=== PATIENT | female | born 1980 | race Caucasian/White ===

== ENCOUNTER 2022-03-14 04:38 | Emergency (ER) | payer OTHER ==
[~2022-03-14] VITALS: Ht 172.7 cm; Wt 63.6 kg
[2022-03-14 06:00] VITALS: BP 135/75
== END 2022-03-14 06:52 | disposition home or self-care (01) ==
LOC: EMS 04:42
DX: S09.93XA Unspecified injury of face, initial encounter (principal); Z88.5 Allergy status to narcotic agent; Z88.8 Allergy status to other drugs, medicaments and biological substances; Y04.0XXA Assault by unarmed brawl or fight, initial encounter; Y93.89 Activity, other specified; Y92.89 Other specified places as the place of occurrence of the external cause; Y99.8 Other external cause status
CPT/HCPCS: 99281; Z7502

== ENCOUNTER 2022-08-27 04:25 | Inpatient (IN) | payer MEDICAID ==
[~2022-08-27] VITALS: Ht 175.3 cm; Wt 72.4 kg
[2022-08-27 06:17] VITALS: BP 98/68
[2022-08-27] MEDS ORDERED: LOPERAMIDE HCL 2 MG CAPSULE PO PRN (06:45)
[2022-08-27] MEDS ORDERED: NICOTINE 14 MG/24 HOUR PATCH TD PRN (06:45)
[2022-08-27] MEDS ORDERED: MAGNESIUM HYDROXIDE SUSPENSION 30 ML UDCUP PO PRN (06:45)
[2022-08-27] MEDS ORDERED: CloNIDine HCL 0.1 MG TABLET PO PRN (06:45)
[2022-08-27] MEDS ORDERED: ALBUTEROL SULFATE HFA 90 MCG/PUFF 8 GM INHALER IH PRN (06:45)
[2022-08-27] MEDS ORDERED: IBUPROFEN 400 MG TABLET PO PRN (06:45)
[2022-08-27] MEDS ORDERED: DOCUSATE SODIUM 100 MG CAPSULE PO PRN (06:45)
[2022-08-27] MEDS ORDERED: PETROLATUM,WHITE 28 GM JELLY TP PRN (06:45)
[2022-08-27] MEDS ORDERED: GuaiFENesin/D-METHORPHAN [SUGAR-FREE] 200-20MG/10 ML SYRUP UDCUP PO PRN (06:45)
[2022-08-27 08:15] VITALS: BP 113/66
[2022-08-27] MEDS: LORazepam 2 MG TABLET PO PRN ×3 (08:54→21:13)
[2022-08-27] MEDS: HALOPERIDOL 5 MG TABLET PO PRN ×2 (08:54→14:30)
[2022-08-27] MEDS: SERTRALINE HCL 50 MG TABLET PO SCH (09:46)
[2022-08-27 20:29] VITALS: BP 113/75
[2022-08-27] MEDS: QUEtiapine FUMARATE 200 MG TABLET PO SCH (21:12)
[2022-08-27] MEDS: ZOLPIDEM TARTRATE 10 MG TABLET PO PRN (21:12)
[2022-08-28] MEDS: LORazepam 2 MG TABLET PO PRN ×3 (06:01→22:24)
[2022-08-28] MEDS: SERTRALINE HCL 50 MG TABLET PO SCH (08:15)
[2022-08-28 08:16] VITALS: BP 116/65
[2022-08-28] MEDS: QUEtiapine FUMARATE 200 MG TABLET PO SCH (20:07)
[2022-08-28 20:53] VITALS: BP 118/69
[2022-08-28] MEDS: ZOLPIDEM TARTRATE 10 MG TABLET PO PRN (21:24)
[2022-08-28] MEDS: HALOPERIDOL 5 MG TABLET PO PRN (22:24)
[2022-08-29] MEDS ORDERED: DiphenhydrAMINE HCL 50 MG/ML VIAL ONE (05:26)
[2022-08-29] MEDS ORDERED: HALOPERIDOL LACTATE 5 MG/ML VIAL ONE (05:26)
[2022-08-29] MEDS ORDERED: DiphenhydrAMINE HCL 50 MG/ML VIAL IM ONE (05:30)
[2022-08-29] MEDS ORDERED: LORazepam 2 MG/ML VIAL IM ONE (05:30)
[2022-08-29] MEDS ORDERED: HALOPERIDOL LACTATE 5 MG/ML VIAL IM ONE (05:30)
[2022-08-29 06:08] VITALS: BP 124/68
[2022-08-29 07:40] LABS: BASOPHILS % (AUTO) 1.2 % (0.0-2.0); HEMATOCRIT 31.9 % (36-46); HEMOGLOBIN 9.7 g/dL (12.0-16.0); LYMPHOCYTES # (AUTO) 1.7 K/uL (1.0-4.8); LYMPHOCYTES % (AUTO) 30.7 % (22.0-44.0); MEAN CORPUSCULAR HEMOGLOBIN 20.9 pg (26.0-34.0); MEAN CORPUSCULAR HGB CONC 30.3 G/dL (31.0-37.0); MEAN CORPUSCULAR VOLUME 69 fL (80-100); MONOCYTES # (AUTO) 0.4 K/uL (0.1-1.0); MONOCYTES % (AUTO) 6.6 % (2.0-9.0); NEUTROPHILS # (AUTO) 3.3 K/uL (1.8-7.7); NEUTROPHILS % (AUTO) 60.5 % (40.0-70.0); PLATELET COUNT (AUTO) 333 K/uL (150-450); RED BLOOD CELL COUNT(AUTO) 4.61 MIL/uL (4.00-5.20); RED CELL DISTRIBUTION WIDTH 19.8 % (11.5-14.5)
[2022-08-29 07:50] LABS: HEMOGLOBIN A1C 5.8 % (3.8-5.6)
[2022-08-29 07:57] LABS: ALANINE AMINOTRANSFERASE 58 U/L (12-78); ALBUMIN 2.8 g/dL (3.4-5.0); ALKALINE PHOSPHATASE 84 U/L (46-116); ANION GAP 5 mmol/L (8-16); ASPARTATE AMINOTRANSFERASE 34 U/L (15-37); BILIRUBIN,TOTAL 0.2 mg/dL (0.1-1.0); CALCIUM, TOTAL 8.5 mg/dL (8.8-10.5); CARBON DIOXIDE 32 mmol/L (22-29); CHLORIDE 106 mmol/L (98-107); CHOL/HDL RATIO 3.3 (3.9-5.7); CHOLESTEROL 188 mg/dL (131-200); CREATININE 0.71 mg/dL (0.60-1.30); GLOMERULAR FILTR. RATE CALC > 60 mL/min (>60); GLUCOSE,RANDOM 77 mg/dL (70-110); HDL CHOLESTEROL 57 mg/dL (40-60); LDL CHOL (CALC.) 118 mg/dL (0-130); POTASSIUM 4.5 mmol/L (3.5-5.1); SODIUM SERUM 143 mmol/L (136-145); TOTAL PROTEIN, SERUM 6.8 g/dL (6.4-8.2); TRIGLYCERIDES 64 mg/dL (15-150); UREA NITROGEN, BLOOD 23 mg/dL (7-18)
[2022-08-29 08:18] LABS: FREE T4 (FREE THYROXINE) 0.63 ng/dL (0.76-1.46)
[2022-08-29 09:40] VITALS: BP 120/79
[2022-08-29] MEDS: SERTRALINE HCL 50 MG TABLET PO SCH (09:49)
[2022-08-29] MEDS: QUEtiapine FUMARATE 200 MG TABLET PO SCH ×2 (09:58→20:14)
[2022-08-29] MEDS: HALOPERIDOL 5 MG TABLET PO PRN ×2 (13:51→22:43)
[2022-08-29] MEDS: LORazepam 2 MG TABLET PO PRN ×2 (13:51→22:43)
[2022-08-29] MEDS: MAG HYDROX/AL HYDROX/SIMETH ES 30 ML SUSPENSION UDCUP PO PRN (15:28)
[2022-08-29 20:16] VITALS: BP 111/71
[2022-08-30] MEDS: ZOLPIDEM TARTRATE 10 MG TABLET PO PRN ×2 (01:34→20:58)
[2022-08-30] MEDS: MAG HYDROX/AL HYDROX/SIMETH ES 30 ML SUSPENSION UDCUP PO PRN (08:15)
[2022-08-30 08:18] VITALS: BP 121/71
[2022-08-30] MEDS: SERTRALINE HCL 50 MG TABLET PO SCH (09:02)
[2022-08-30] MEDS: LORazepam 2 MG TABLET PO PRN ×2 (09:02→16:55)
[2022-08-30] MEDS: QUEtiapine FUMARATE 200 MG TABLET PO SCH ×2 (09:02→20:45)
[2022-08-30] MEDS ORDERED: LORazepam 2 MG/ML VIAL ONE (09:27)
[2022-08-30] MEDS ORDERED: LORazepam 2 MG/ML VIAL IM ONE ×2 (09:30→10:00)
[2022-08-30] MEDS ORDERED: HALOPERIDOL LACTATE 5 MG/ML VIAL IM ONE ×2 (09:30→10:00)
[2022-08-30] MEDS ORDERED: DiphenhydrAMINE HCL 50 MG/ML VIAL IM ONE ×2 (09:30→10:00)
[2022-08-30] MEDS: HALOPERIDOL 5 MG TABLET PO PRN (16:55)
[2022-08-31 01:29] VITALS: BP 109/68
[2022-08-31 07:33] VITALS: BP 101/60
[2022-08-31] MEDS: QUEtiapine FUMARATE 200 MG TABLET PO SCH ×2 (08:27→20:03)
[2022-08-31] MEDS: ACETAMINOPHEN 325 MG TABLET PO PRN (08:28)
[2022-08-31] MEDS: SERTRALINE HCL 50 MG TABLET PO SCH (08:28)
[2022-08-31] MEDS: LORazepam 2 MG TABLET PO PRN ×3 (08:28→23:40)
[2022-08-31 08:38] VITALS: BP 101/60
[2022-08-31] MEDS: HALOPERIDOL 5 MG TABLET PO PRN ×2 (15:30→23:40)
[2022-08-31] MEDS: ZOLPIDEM TARTRATE 10 MG TABLET PO PRN (20:03)
[2022-09-01 04:38] VITALS: BP 101/61
[2022-09-01 04:56] LABS: GLUCOMETER DEV NAME(LOC) POC.BV
[2022-09-01 08:15] VITALS: BP 105/63
[2022-09-01] MEDS: LORazepam 2 MG TABLET PO PRN ×2 (09:04→15:49)
[2022-09-01] MEDS: HALOPERIDOL 5 MG TABLET PO PRN ×2 (09:04→15:49)
[2022-09-01] MEDS: SERTRALINE HCL 50 MG TABLET PO SCH (09:04)
[2022-09-01] MEDS: QUEtiapine FUMARATE 200 MG TABLET PO SCH (09:04)
[2022-09-01] MEDS: ONDANSETRON HCL 4 MG TABLET PO PRN ×2 (17:01→18:11)
[2022-09-01] MEDS: ZOLPIDEM TARTRATE 10 MG TABLET PO PRN (20:11)
[2022-09-01] MEDS: QUEtiapine FUMARATE 300 MG TABLET PO SCH (20:11)
[2022-09-01 20:15] VITALS: BP 107/55
[2022-09-02] MEDS: SERTRALINE HCL 50 MG TABLET PO SCH (08:11)
[2022-09-02] MEDS: QUEtiapine FUMARATE 300 MG TABLET PO SCH ×2 (08:11→20:07)
[2022-09-02] MEDS: LORazepam 2 MG TABLET PO PRN ×3 (08:11→22:48)
[2022-09-02 08:15] VITALS: BP 120/78
[2022-09-02] MEDS: HALOPERIDOL 5 MG TABLET PO PRN ×3 (08:52→22:48)
[2022-09-02] MEDS: ZOLPIDEM TARTRATE 10 MG TABLET PO PRN (20:07)
[2022-09-02 20:48] VITALS: BP 108/60
[2022-09-03] MEDS: LORazepam 2 MG TABLET PO PRN ×3 (04:24→15:59)
[2022-09-03] MEDS: HALOPERIDOL 5 MG TABLET PO PRN ×3 (04:24→15:59)
[2022-09-03 08:32] VITALS: BP 103/61
[2022-09-03] MEDS: SERTRALINE HCL 50 MG TABLET PO SCH (09:01)
[2022-09-03] MEDS: QUEtiapine FUMARATE 300 MG TABLET PO SCH ×2 (09:01→20:06)
[2022-09-03 20:03] VITALS: BP 110/60
[2022-09-03] MEDS: ZOLPIDEM TARTRATE 10 MG TABLET PO PRN (20:07)
[2022-09-04 08:23] VITALS: BP 118/77
[2022-09-04] MEDS: QUEtiapine FUMARATE 300 MG TABLET PO SCH ×2 (08:26→20:18)
[2022-09-04] MEDS: SERTRALINE HCL 50 MG TABLET PO SCH (08:26)
[2022-09-04] MEDS: PANTOPRAZOLE SODIUM 40 MG DR TABLET PO SCH ×2 (13:13→17:09)
[2022-09-04] MEDS: LORazepam 2 MG TABLET PO PRN (15:08)
[2022-09-04 20:41] VITALS: BP 117/75
[2022-09-04] MEDS: ZOLPIDEM TARTRATE 10 MG TABLET PO PRN (22:55)
[2022-09-05] MEDS: LORazepam 2 MG TABLET PO PRN ×3 (03:24→18:44)
[2022-09-05] MEDS: HALOPERIDOL 5 MG TABLET PO PRN (03:24)
[2022-09-05 06:47] LABS: BASOPHILS % (AUTO) 0.4 % (0.0-2.0); EOSINOPHILS % (AUTO) 1.4 % (1.0-6.0); HEMATOCRIT 31.2 % (36-46); HEMOGLOBIN 9.3 g/dL (12.0-16.0); LYMPHOCYTES # (AUTO) 1.5 K/uL (1.0-4.8); LYMPHOCYTES % (AUTO) 20.9 % (22.0-44.0); MEAN CORPUSCULAR HEMOGLOBIN 20.7 pg (26.0-34.0); MEAN CORPUSCULAR HGB CONC 29.8 G/dL (31.0-37.0); MEAN CORPUSCULAR VOLUME 69 fL (80-100); MONOCYTES # (AUTO) 0.5 K/uL (0.1-1.0); MONOCYTES % (AUTO) 6.2 % (2.0-9.0); NEUTROPHILS # (AUTO) 5.3 K/uL (1.8-7.7); NEUTROPHILS % (AUTO) 71.1 % (40.0-70.0); PLATELET COUNT (AUTO) 305 K/uL (150-450); RED CELL DISTRIBUTION WIDTH 19.6 % (11.5-14.5)
[2022-09-05] MEDS: QUEtiapine FUMARATE 300 MG TABLET PO SCH ×2 (08:28→20:18)
[2022-09-05] MEDS: SERTRALINE HCL 50 MG TABLET PO SCH (08:28)
[2022-09-05] MEDS: PANTOPRAZOLE SODIUM 40 MG DR TABLET PO SCH ×2 (08:28→16:50)
[2022-09-05] MEDS: ACETAMINOPHEN 325 MG TABLET PO PRN (08:31)
[2022-09-05 08:38] VITALS: BP 112/62
[2022-09-05] MEDS: FERROUS SULFATE 325 MG EC TABLET PO SCH (16:50)
[2022-09-05 20:37] VITALS: BP 112/68
[2022-09-06] MEDS: LORazepam 2 MG TABLET PO PRN ×4 (03:17→17:10)
[2022-09-06] MEDS: HALOPERIDOL 5 MG TABLET PO PRN ×4 (03:17→17:10)
[2022-09-06] MEDS: FERROUS SULFATE 325 MG EC TABLET PO SCH ×2 (06:22→17:09)
[2022-09-06] MEDS: SERTRALINE HCL 50 MG TABLET PO SCH (08:22)
[2022-09-06] MEDS: QUEtiapine FUMARATE 300 MG TABLET PO SCH ×2 (08:22→20:10)
[2022-09-06] MEDS: PANTOPRAZOLE SODIUM 40 MG DR TABLET PO SCH ×2 (08:22→17:09)
[2022-09-06 08:26] VITALS: BP 107/63
[2022-09-06 20:07] VITALS: BP 100/60
[2022-09-06] MEDS: ZOLPIDEM TARTRATE 10 MG TABLET PO PRN (23:23)
[2022-09-07] MEDS: FERROUS SULFATE 325 MG EC TABLET PO SCH ×2 (06:48→18:00)
[2022-09-07 08:17] VITALS: BP 102/61
[2022-09-07] MEDS: LORazepam 2 MG TABLET PO PRN ×2 (09:05→18:00)
[2022-09-07] MEDS: HALOPERIDOL 5 MG TABLET PO PRN ×2 (09:05→18:00)
[2022-09-07] MEDS: QUEtiapine FUMARATE 300 MG TABLET PO SCH ×2 (09:05→20:25)
[2022-09-07] MEDS: PANTOPRAZOLE SODIUM 40 MG DR TABLET PO SCH ×2 (09:05→18:00)
[2022-09-07] MEDS: SERTRALINE HCL 50 MG TABLET PO SCH (09:05)
[2022-09-07] MEDS: ZOLPIDEM TARTRATE 10 MG TABLET PO PRN (20:24)
[2022-09-07 20:28] VITALS: BP 103/69
[2022-09-08] MEDS: FERROUS SULFATE 325 MG EC TABLET PO SCH (06:32)
[2022-09-08] MEDS: QUEtiapine FUMARATE 300 MG TABLET PO SCH (08:43)
[2022-09-08] MEDS: PANTOPRAZOLE SODIUM 40 MG DR TABLET PO SCH (08:43)
[2022-09-08] MEDS: SERTRALINE HCL 50 MG TABLET PO SCH (08:43)
[2022-09-08] MEDS ORDERED: QUET300T19 PO (09:05)
[2022-09-08] MEDS ORDERED: SERT-439 PO (09:05)
[2022-09-08] MEDS ORDERED: FERR325T27 PO (09:05)
== END 2022-09-08 13:09 | disposition home or self-care (01) | DRG 753 ==
LOC: B3A 04:30
PROVIDERS: ADMIT Psychiatry & Neurology Psychiatry; ATTEND Psychiatry & Neurology Psychiatry
DX: F31.63 Bipolar disorder, current episode mixed, severe, without psychotic features (principal); R45.851 Suicidal ideations; F41.9 Anxiety disorder, unspecified; G47.00 Insomnia, unspecified; R73.03 Prediabetes; D64.9 Anemia, unspecified; F10.10 Alcohol abuse, uncomplicated; F15.10 Other stimulant abuse, uncomplicated; Z20.822 Contact with and (suspected) exposure to COVID-19; Z59.00 Homelessness unspecified; Z79.899 Other long term (current) drug therapy; Z88.5 Allergy status to narcotic agent; Z88.8 Allergy status to other drugs, medicaments and biological substances
CPT/HCPCS: 80053; 80061; 83036; 84436; 84439; 84443; 85025; G0480; J1200; J1630; J2060; Q0162

== ENCOUNTER 2022-10-07 12:14 | Inpatient (IN) | payer MEDICAID ==
[~2022-10-07] VITALS: Ht 175.3 cm; Wt 84.8 kg
[~2022-10-07 12:14] MED LIST: FERR325T27 PO; QUET300T19 PO; SERT-439 PO
[2022-10-07 13:56] LABS: GLUCOMETER DEV NAME(LOC) POC.BV
[2022-10-07 15:14] VITALS: BP 117/64
[2022-10-07] MEDS ORDERED: INFLUENZA VIRUS VACCINE QVS 2022-23 (6MO+)/PF 60 MCG/0.5 ML SYRINGE IM. ONE (15:30)
[2022-10-07] MEDS: LORazepam 2 MG TABLET PO PRN (15:58)
[2022-10-07] MEDS: HALOPERIDOL 5 MG TABLET PO PRN (15:58)
[2022-10-07 18:33] VITALS: BP 120/72
[2022-10-07] MEDS ORDERED: NICOTINE 21 MG/24 HOUR PATCH TD PRN (19:45)
[2022-10-07] MEDS ORDERED: IBUPROFEN 400 MG TABLET PO PRN (19:45)
[2022-10-07 20:47] VITALS: BP 128/81
[2022-10-07] MEDS: ZOLPIDEM TARTRATE 10 MG TABLET PO PRN (21:32)
[2022-10-08 07:46] LABS: BASOPHILS % (AUTO) 0.5 % (0.0-2.0); EOSINOPHILS % (AUTO) 1.1 % (1.0-6.0); HEMATOCRIT 30.7 % (36-46); HEMOGLOBIN 9.3 g/dL (12.0-16.0); LYMPHOCYTES # (AUTO) 1.2 K/uL (1.0-4.8); LYMPHOCYTES % (AUTO) 15.8 % (22.0-44.0); MEAN CORPUSCULAR HEMOGLOBIN 22.1 pg (26.0-34.0); MEAN CORPUSCULAR HGB CONC 30.4 G/dL (31.0-37.0); MEAN CORPUSCULAR VOLUME 73 fL (80-100); MONOCYTES # (AUTO) 0.6 K/uL (0.1-1.0); MONOCYTES % (AUTO) 7.7 % (2.0-9.0); NEUTROPHILS # (AUTO) 5.8 K/uL (1.8-7.7); NEUTROPHILS % (AUTO) 74.9 % (40.0-70.0); PLATELET COUNT (AUTO) 377 K/uL (150-450); RED BLOOD CELL COUNT(AUTO) 4.22 MIL/uL (4.00-5.20); RED CELL DISTRIBUTION WIDTH 22.2 % (11.5-14.5)
[2022-10-08 08:10] LABS: ALANINE AMINOTRANSFERASE 31 U/L (12-78); ALBUMIN 2.6 g/dL (3.4-5.0); ALKALINE PHOSPHATASE 85 U/L (46-116); ANION GAP 4 mmol/L (8-16); ASPARTATE AMINOTRANSFERASE 24 U/L (15-37); BILIRUBIN,TOTAL 0.3 mg/dL (0.1-1.0); CALCIUM, TOTAL 8.4 mg/dL (8.8-10.5); CARBON DIOXIDE 30 mmol/L (22-29); CHLORIDE 104 mmol/L (98-107); CHOLESTEROL 178 mg/dL (131-200); CREATININE 0.88 mg/dL (0.60-1.30); FREE T4 (FREE THYROXINE) 0.79 ng/dL (0.76-1.46); GLOMERULAR FILTR. RATE CALC > 60 mL/min (>60); GLUCOSE,RANDOM 80 mg/dL (70-110); HCG,QUANTITATIVE < 1 mIU/mL (0-6); HDL CHOLESTEROL 59 mg/dL (40-60); LDL CHOL (CALC.) 102 mg/dL (0-130); POTASSIUM 4.1 mmol/L (3.5-5.1); SODIUM SERUM 138 mmol/L (136-145); THYROID STIMULATING HORMONE 1.31 uIU/mL (0.36-3.74); TOTAL PROTEIN, SERUM 6.4 g/dL (6.4-8.2); TRIGLYCERIDES 83 mg/dL (15-150); UREA NITROGEN, BLOOD 17 mg/dL (7-18)
[2022-10-08 08:11] LABS: HEMOGLOBIN A1C 5.8 % (3.8-5.6)
[2022-10-08 08:18] VITALS: BP 130/82
[2022-10-08] MEDS: LORazepam 2 MG TABLET PO PRN ×2 (09:49→20:47)
[2022-10-08] MEDS: HALOPERIDOL 5 MG TABLET PO PRN ×2 (09:49→20:48)
[2022-10-08] MEDS: SERTRALINE HCL 50 MG TABLET PO SCH (09:49)
[2022-10-08] MEDS: QUEtiapine FUMARATE 300 MG TABLET PO SCH (20:15)
[2022-10-08] MEDS ORDERED: QUEtiapine FUMARATE 300 MG TABLET PO SCH (21:00)
[2022-10-09 00:16] VITALS: BP 125/78
[2022-10-09] MEDS: QUEtiapine FUMARATE 300 MG TABLET PO SCH ×2 (08:13→20:12)
[2022-10-09] MEDS: SERTRALINE HCL 50 MG TABLET PO SCH (08:14)
[2022-10-09] MEDS: LORazepam 2 MG TABLET PO PRN ×2 (08:34→20:13)
[2022-10-09 10:50] VITALS: BP 118/80
[2022-10-09 20:03] VITALS: BP 110/70
[2022-10-09 23:50] VITALS: BP 110/82
[2022-10-10] MEDS: LORazepam 2 MG TABLET PO PRN ×3 (00:03→23:57)
[2022-10-10] MEDS: ZOLPIDEM TARTRATE 10 MG TABLET PO PRN ×2 (00:04→20:11)
[2022-10-10] MEDS: QUEtiapine FUMARATE 300 MG TABLET PO SCH ×2 (08:22→20:11)
[2022-10-10] MEDS: SERTRALINE HCL 50 MG TABLET PO SCH (08:22)
[2022-10-10 10:22] VITALS: BP 116/79
[2022-10-10] MEDS: HALOPERIDOL 5 MG TABLET PO PRN ×2 (17:10→23:57)
[2022-10-10 21:38] VITALS: BP 114/72
[2022-10-11] MEDS: LORazepam 2 MG TABLET PO PRN ×3 (04:33→20:17)
[2022-10-11] MEDS: HALOPERIDOL 5 MG TABLET PO PRN ×3 (04:33→20:16)
[2022-10-11 08:41] VITALS: BP 121/73
[2022-10-11] MEDS: SERTRALINE HCL 50 MG TABLET PO SCH (09:07)
[2022-10-11] MEDS: QUEtiapine FUMARATE 300 MG TABLET PO SCH ×2 (09:07→20:16)
[2022-10-11] MEDS: ZOLPIDEM TARTRATE 10 MG TABLET PO PRN (20:16)
[2022-10-11 21:14] VITALS: BP 119/85
[2022-10-12 08:00] VITALS: BP 114/80
[2022-10-12] MEDS: LORazepam 2 MG TABLET PO PRN ×2 (08:11→13:49)
[2022-10-12] MEDS: SERTRALINE HCL 50 MG TABLET PO SCH (08:11)
[2022-10-12] MEDS: QUEtiapine FUMARATE 300 MG TABLET PO SCH ×2 (08:11→20:11)
[2022-10-12 21:18] VITALS: BP 115/68
[2022-10-12] MEDS: ZOLPIDEM TARTRATE 10 MG TABLET PO PRN (23:05)
[2022-10-13] MEDS: LORazepam 2 MG TABLET PO PRN ×4 (01:41→21:03)
[2022-10-13 08:30] VITALS: BP 125/76
[2022-10-13] MEDS: QUEtiapine FUMARATE 300 MG TABLET PO SCH ×2 (08:30→20:38)
[2022-10-13] MEDS: SERTRALINE HCL 50 MG TABLET PO SCH (08:30)
[2022-10-13 15:11] LABS: GLUCOMETER DEV NAME(LOC) POC.BV
[2022-10-13] MEDS: HALOPERIDOL 5 MG TABLET PO PRN ×2 (16:07→21:03)
[2022-10-13] MEDS ORDERED: OxyCODONE HCL/ACETAMINOPHEN 5-325 MG TABLET PO ONE (16:45)
[2022-10-13] MEDS: OMEPRAZOLE 20 MG CAPSULE PO SCH ×2 (17:37→20:38)
[2022-10-13 21:00] VITALS: BP 117/77
[2022-10-14] MEDS: ZOLPIDEM TARTRATE 10 MG TABLET PO PRN (00:30)
[2022-10-14] MEDS ORDERED: SERT-439 PO (04:42)
[2022-10-14] MEDS ORDERED: QUET300T19 PO (04:42)
[2022-10-14] MEDS: OMEPRAZOLE 20 MG CAPSULE PO SCH (08:22)
[2022-10-14] MEDS: QUEtiapine FUMARATE 300 MG TABLET PO SCH (08:22)
[2022-10-14] MEDS: SERTRALINE HCL 50 MG TABLET PO SCH (08:22)
[2022-10-14 08:26] VITALS: BP 109/67
== END 2022-10-14 13:11 | disposition home or self-care (01) | DRG 753 ==
LOC: B3A 13:46
PROVIDERS: ADMIT Psychiatry & Neurology Psychiatry; ATTEND Psychiatry & Neurology Psychiatry
DX: F31.5 Bipolar disorder, current episode depressed, severe, with psychotic features (principal); R45.851 Suicidal ideations; D64.9 Anemia, unspecified; F10.10 Alcohol abuse, uncomplicated; K58.9 Irritable bowel syndrome, unspecified; F15.10 Other stimulant abuse, uncomplicated; Z20.822 Contact with and (suspected) exposure to COVID-19; R73.03 Prediabetes; Z59.00 Homelessness unspecified; Z79.899 Other long term (current) drug therapy; Z88.6 Allergy status to analgesic agent; Z88.8 Allergy status to other drugs, medicaments and biological substances
CPT/HCPCS: 80053; 80061; 83036; 84436; 84439; 84443; 84702; 85025; 86592; G0480

== ENCOUNTER 2023-07-11 17:02 | Inpatient (IN) | payer MEDICAID ==
[~2023-07-11] VITALS: Ht 175.3 cm; Wt 78.0 kg
[~2023-07-11 17:02] MED LIST changes: -FERR325T27 PO
[2023-07-11] MEDS ORDERED: HYDROCODONE/ACETAMINOPHEN 5-325 MG TABLET PO ONE (20:00)
[2023-07-11 20:17] LABS: BASOPHILS % (AUTO) 0.8 % (0.0-2.0); EOSINOPHILS % (AUTO) 1.4 % (1.0-6.0); HEMATOCRIT 27.7 % (36-46); HEMOGLOBIN 8.5 g/dL (12.0-16.0); LYMPHOCYTES # (AUTO) 1.3 K/uL (1.0-4.8); LYMPHOCYTES % (AUTO) 15.9 % (22.0-44.0); MEAN CORPUSCULAR HEMOGLOBIN 21.8 pg (26.0-34.0); MEAN CORPUSCULAR HGB CONC 30.6 G/dL (31.0-37.0); MEAN CORPUSCULAR VOLUME 71 fL (80-100); MONOCYTES # (AUTO) 0.5 K/uL (0.1-1.0); MONOCYTES % (AUTO) 6.5 % (2.0-9.0); NEUTROPHILS # (AUTO) 6.1 K/uL (1.8-7.7); NEUTROPHILS % (AUTO) 75.4 % (40.0-70.0); PLATELET COUNT (AUTO) 358 K/uL (150-450); RED BLOOD CELL COUNT(AUTO) 3.89 MIL/uL (4.00-5.20); RED CELL DISTRIBUTION WIDTH 19.3 % (11.5-14.5); WHITE BLOOD COUNT (AUTO) 8.1 K/uL (4.5-11.0)
[2023-07-11 20:31] LABS: ANION GAP 4 mmol/L (8-16); CALCIUM, TOTAL 8.7 mg/dL (8.8-10.5); CARBON DIOXIDE 32 mmol/L (22-29); CHLORIDE 102 mmol/L (98-107); GLOMERULAR FILTR. RATE CALC > 60 mL/min (>60); GLUCOSE,RANDOM 95 mg/dL (70-110); SODIUM SERUM 138 mmol/L (136-145); UREA NITROGEN, BLOOD 25 mg/dL (7-18)
[2023-07-11 20:35] LABS: ALANINE AMINOTRANSFERASE 138 U/L (12-78); ALBUMIN 2.8 g/dL (3.4-5.0); ALKALINE PHOSPHATASE 99 U/L (46-116); ASPARTATE AMINOTRANSFERASE 74 U/L (15-37); BILIRUBIN,TOTAL 0.1 mg/dL (0.1-1.0); TOTAL PROTEIN, SERUM 6.4 g/dL (6.4-8.2)
[2023-07-11 20:38] LABS: ALCOHOL, BLOOD (SERUM) < 3 mg/dL (0-10)
[2023-07-11 20:44] LABS: RBC MORPHOLOGY COMMENT ABNORMAL RBC MORPH
[2023-07-11 20:52] LABS: COVID AG,FIA SOURCE NASAL SWAB
[2023-07-11 21:07] LABS: PH,URINE DRUG SCREEN 5.5 (5.0-8.0)
[2023-07-11 21:10] LABS: SARS-COV2 (COVID) ANTIGEN,FIA Negative (Negative)
[2023-07-11 21:14] LABS: AMPHET/METH SCREEN,URINE NEGATIVE (NEGATIVE); BARBITURATE SCREEN, URINE NEGATIVE (NEGATIVE); BENZODIAZEPINES SCREEN,URINE NEGATIVE (NEGATIVE); CANNABINOID SCREEN,URINE NEGATIVE (NEGATIVE); COCAINE SCREEN,URINE NEGATIVE (NEGATIVE); METHADONE SCREEN, URINE NEGATIVE (NEGATIVE); OPIATE SCREEN,URINE NEGATIVE (NEGATIVE); PHENCYCLIDINE SCREEN,URINE NEGATIVE (NEGATIVE)
[2023-07-11 21:15] LABS: ALCOHOL, URINE DRUG SCREEN NEGATIVE (NEGATIVE)
[2023-07-12] MEDS ORDERED: HYDROCODONE/ACETAMINOPHEN 5-325 MG TABLET PO ONE (01:15)
[2023-07-12] MEDS ORDERED: MAG HYDROX/ALUMINUM HYD/SIMETH 30 ML SUSPENSION UDCUP PO ONE (03:15)
[2023-07-12] MEDS ORDERED: FAMOTIDINE 20 MG TABLET PO ONE (03:15)
[2023-07-12 11:10] VITALS: BP 129/78; PULSE 104; RESP 18; TEMP 98.2
[2023-07-12] MEDS: LORazepam 2 MG TABLET PO PRN (13:02)
[2023-07-12 19:28] VITALS: BP 129/78; PULSE 104; RESP 18; TEMP 98.2; O2SAT 98
[2023-07-12] MEDS: QUEtiapine FUMARATE 300 MG TABLET PO SCH (20:06)
[2023-07-13 00:07] VITALS: BP 129/75; PULSE 94; RESP 18; TEMP 98.7; O2SAT 97
[2023-07-13] MEDS: ZOLPIDEM TARTRATE 10 MG TABLET PO PRN ×2 (01:56→22:45)
[2023-07-13] MEDS: FERROUS SULFATE 325 MG EC TABLET PO SCH ×4 (06:43→16:17)
[2023-07-13] MEDS ORDERED: CloNIDine HCL 0.1 MG TABLET PO PRN (07:30)
[2023-07-13] MEDS ORDERED: DOCUSATE SODIUM 100 MG CAPSULE PO PRN (07:30)
[2023-07-13] MEDS ORDERED: GuaiFENesin/D-METHORPHAN [SUGAR-FREE] 200-20MG/10 ML SYRUP UDCUP PO PRN (07:30)
[2023-07-13] MEDS ORDERED: ACETAMINOPHEN 325 MG TABLET PO PRN (07:30)
[2023-07-13] MEDS ORDERED: LOPERAMIDE HCL 2 MG CAPSULE PO PRN (07:30)
[2023-07-13] MEDS ORDERED: MAGNESIUM HYDROXIDE SUSPENSION 30 ML UDCUP PO PRN (07:30)
[2023-07-13] MEDS ORDERED: PETROLATUM,WHITE 28 GM JELLY TP PRN (07:30)
[2023-07-13] MEDS ORDERED: ALBUTEROL SULFATE HFA 90 MCG/PUFF 8 GM INHALER IH PRN (07:30)
[2023-07-13] MEDS: SERTRALINE HCL 50 MG TABLET PO SCH (08:01)
[2023-07-13] MEDS: LORazepam 2 MG TABLET PO PRN ×2 (08:01→16:17)
[2023-07-13] MEDS: QUEtiapine FUMARATE 300 MG TABLET PO SCH ×2 (08:01→20:24)
[2023-07-13] MEDS: HALOPERIDOL 5 MG TABLET PO PRN (08:01)
[2023-07-13 08:21] VITALS: BP 116/76; PULSE 74; RESP 17; TEMP 98.4; O2SAT 97
[2023-07-13 20:48] VITALS: BP 128/82; PULSE 83; RESP 18; TEMP 98.1; O2SAT 97
[2023-07-14] MEDS: LORazepam 2 MG TABLET PO PRN ×3 (01:59→12:37)
[2023-07-14] MEDS: HALOPERIDOL 5 MG TABLET PO PRN ×3 (01:59→12:37)
[2023-07-14] MEDS: FERROUS SULFATE 325 MG EC TABLET PO SCH ×3 (07:03→16:35)
[2023-07-14 08:03] LABS: HEMOGLOBIN A1C 5.5 % (3.8-5.6)
[2023-07-14 08:21] LABS: CHOL/HDL RATIO 3.1 (3.9-5.7); THYROID STIMULATING HORMONE 1.74 uIU/mL (0.36-3.74)
[2023-07-14] MEDS: SERTRALINE HCL 50 MG TABLET PO SCH (08:21)
[2023-07-14] MEDS: QUEtiapine FUMARATE 300 MG TABLET PO SCH ×2 (08:21→20:31)
[2023-07-14 08:38] VITALS: BP 110/66; PULSE 86; RESP 16; TEMP 97.9; O2SAT 98
[2023-07-14 20:20] VITALS: BP 127/84; PULSE 104; RESP 20; TEMP 97.8; O2SAT 98
[2023-07-15] MEDS: LORazepam 2 MG TABLET PO PRN ×3 (06:17→16:08)
[2023-07-15] MEDS: FERROUS SULFATE 325 MG EC TABLET PO SCH ×3 (06:40→16:08)
[2023-07-15] MEDS: QUEtiapine FUMARATE 300 MG TABLET PO SCH ×2 (08:20→20:07)
[2023-07-15] MEDS: HALOPERIDOL 5 MG TABLET PO PRN ×2 (08:20→16:09)
[2023-07-15] MEDS: SERTRALINE HCL 50 MG TABLET PO SCH (08:20)
[2023-07-15 08:30] VITALS: BP 92/56; PULSE 104; RESP 16; TEMP 97.3; O2SAT 98
[2023-07-15] MEDS: ZOLPIDEM TARTRATE 10 MG TABLET PO PRN (20:07)
[2023-07-15 23:21] VITALS: BP 109/72; PULSE 72; RESP 16; TEMP 98.8; O2SAT 100
[2023-07-16 03:06] LABS: HIV 1-2 SCREEN 4TH GEN W/RFLX Non Reactive (Non Reactive)
[2023-07-16 05:56] VITALS: BP 117/77; PULSE 98; RESP 18; TEMP 97.6
[2023-07-16] MEDS: LORazepam 2 MG TABLET PO PRN ×3 (05:56→16:14)
[2023-07-16] MEDS: FERROUS SULFATE 325 MG EC TABLET PO SCH ×3 (05:57→16:14)
[2023-07-16] MEDS: SERTRALINE HCL 50 MG TABLET PO SCH (08:12)
[2023-07-16] MEDS: QUEtiapine FUMARATE 300 MG TABLET PO SCH ×2 (08:12→20:31)
[2023-07-16 08:48] VITALS: BP 122/76; PULSE 83; RESP 18; TEMP 98.2; O2SAT 98
[2023-07-17] MEDS: ZOLPIDEM TARTRATE 10 MG TABLET PO PRN (00:28)
[2023-07-17] MEDS: LORazepam 2 MG TABLET PO PRN ×2 (00:28→13:58)
[2023-07-17] MEDS: IBUPROFEN 400 MG TABLET PO PRN (00:29)
[2023-07-17] MEDS: MAG HYDROX/ALUMINUM HYD/SIMETH ES 30 ML SUSPENSION UDCUP PO PRN (05:24)
[2023-07-17] MEDS: FERROUS SULFATE 325 MG EC TABLET PO SCH ×3 (06:29→16:11)
[2023-07-17] MEDS: ACETAMINOPHEN 325 MG TABLET PO PRN (06:34)
[2023-07-17 07:54] VITALS: BP 118/74; PULSE 115; RESP 18; TEMP 97.2; O2SAT 98
[2023-07-17] MEDS: SERTRALINE HCL 50 MG TABLET PO SCH (08:15)
[2023-07-17] MEDS: QUEtiapine FUMARATE 300 MG TABLET PO SCH ×2 (08:15→20:15)
[2023-07-17] MEDS: NICOTINE 14 MG/24 HOUR PATCH TD PRN (08:45)
[2023-07-17 09:25] VITALS: BP 118/74; PULSE 115; RESP 18; TEMP 97.2; O2SAT 98
[2023-07-17 14:00] VITALS: BP 125/74
[2023-07-17] MEDS ORDERED: DiphenhydrAMINE HCL 50 MG/ML VIAL ONE (14:09)
[2023-07-17] MEDS ORDERED: DiphenhydrAMINE HCL 50 MG/ML VIAL IM ONE (14:15)
[2023-07-17] MEDS ORDERED: LORazepam 2 MG/ML VIAL IM ONE (14:15)
[2023-07-17] MEDS ORDERED: HALOPERIDOL LACTATE 5 MG/ML VIAL IM ONE (14:15)
[2023-07-17 14:50] VITALS: BP 115/72; PULSE 89; RESP 18; TEMP 97.3; O2SAT 99
[2023-07-17 22:44] VITALS: BP 121/80; PULSE 98; RESP 18; TEMP 97.9; O2SAT 98
[2023-07-18] MEDS: ZOLPIDEM TARTRATE 10 MG TABLET PO PRN ×2 (00:36→20:19)
[2023-07-18] MEDS: LORazepam 2 MG TABLET PO PRN ×4 (00:36→16:12)
[2023-07-18] MEDS: FERROUS SULFATE 325 MG EC TABLET PO SCH ×3 (07:00→16:11)
[2023-07-18 07:58] LABS: APPEARANCE,URINE CLEAR (CLEAR); BILIRUBIN,URINE NEGATIVE (NEGATIVE); COLOR,URINE YELLOW (YELLOW); GLUCOSE, URINE (UA) NEGATIVE (NEGATIVE); KETONES,URINE NEGATIVE (NEGATIVE); LEUKOCYTE ESTERASE ,URINE NEGATIVE (NEGATIVE); NITRATE,URINE NEGATIVE (NEGATIVE); OCCULT BLOOD,URINE NEGATIVE (NEGATIVE); PROTEIN,URINE NEGATIVE (NEGATIVE); SPECIFIC GRAVITIY, URINE 1.013 (1.003-1.030); UROBILINOGEN,URINE <=1.0 mg/dL (<=1.0)
[2023-07-18 08:11] LABS: AMPHET/METH SCREEN,URINE NEGATIVE (NEGATIVE); BARBITURATE SCREEN, URINE NEGATIVE (NEGATIVE); BENZODIAZEPINES SCREEN,URINE NEGATIVE (NEGATIVE); CANNABINOID SCREEN,URINE NEGATIVE (NEGATIVE); COCAINE SCREEN,URINE NEGATIVE (NEGATIVE); METHADONE SCREEN, URINE NEGATIVE (NEGATIVE); OPIATE SCREEN,URINE NEGATIVE (NEGATIVE); PHENCYCLIDINE SCREEN,URINE NEGATIVE (NEGATIVE)
[2023-07-18 08:14] LABS: ALCOHOL, URINE DRUG SCREEN NEGATIVE (NEGATIVE)
[2023-07-18 08:25] VITALS: BP 112/73; PULSE 99; RESP 18; TEMP 97.9; O2SAT 98
[2023-07-18] MEDS: QUEtiapine FUMARATE 300 MG TABLET PO SCH ×2 (08:27→20:19)
[2023-07-18] MEDS: NICOTINE 14 MG/24 HOUR PATCH TD PRN (08:27)
[2023-07-18] MEDS: SERTRALINE HCL 50 MG TABLET PO SCH (08:27)
[2023-07-18] MEDS: HALOPERIDOL 5 MG TABLET PO PRN ×3 (08:27→16:11)
[2023-07-18 21:50] VITALS: BP 106/61; PULSE 94; RESP 17; TEMP 97.7; O2SAT 97
[2023-07-19] MEDS: LORazepam 2 MG TABLET PO PRN ×2 (00:51→10:35)
[2023-07-19 00:56] VITALS: BP 125/84; PULSE 92; RESP 17; TEMP 96.1; O2SAT 99
[2023-07-19] MEDS: FERROUS SULFATE 325 MG EC TABLET PO SCH ×3 (06:06→16:13)
[2023-07-19] MEDS: HALOPERIDOL 5 MG TABLET PO PRN (06:36)
[2023-07-19] MEDS: SERTRALINE HCL 50 MG TABLET PO SCH (08:23)
[2023-07-19] MEDS: QUEtiapine FUMARATE 300 MG TABLET PO SCH ×2 (08:23→20:15)
[2023-07-19 08:41] VITALS: BP 108/62; PULSE 100; RESP 16; TEMP 98.6; O2SAT 96
[2023-07-20] MEDS: ZOLPIDEM TARTRATE 10 MG TABLET PO PRN ×2 (01:03→20:35)
[2023-07-20 01:08] VITALS: BP 109/76; PULSE 98; RESP 16; TEMP 97.8; O2SAT 98
[2023-07-20] MEDS: LORazepam 2 MG TABLET PO PRN ×4 (05:15→23:27)
[2023-07-20] MEDS: HALOPERIDOL 5 MG TABLET PO PRN ×4 (05:15→23:27)
[2023-07-20] MEDS: FERROUS SULFATE 325 MG EC TABLET PO SCH ×3 (06:10→16:26)
[2023-07-20] MEDS: QUEtiapine FUMARATE 300 MG TABLET PO SCH ×2 (08:10→20:35)
[2023-07-20] MEDS: SERTRALINE HCL 50 MG TABLET PO SCH (08:10)
[2023-07-20 08:14] VITALS: BP 100/60; PULSE 100; RESP 17; TEMP 97.6; O2SAT 97
[2023-07-20 15:34] VITALS: BP 116/76; PULSE 100; RESP 18
[2023-07-20] MEDS: MAG HYDROX/ALUMINUM HYD/SIMETH ES 30 ML SUSPENSION UDCUP PO PRN (20:42)
[2023-07-20 21:30] VITALS: RESP 18; TEMP 97.8
[2023-07-21] MEDS: MAG HYDROX/ALUMINUM HYD/SIMETH ES 30 ML SUSPENSION UDCUP PO PRN (05:36)
[2023-07-21] MEDS: FERROUS SULFATE 325 MG EC TABLET PO SCH ×3 (06:14→16:05)
[2023-07-21 08:34] VITALS: BP 121/78; PULSE 89; RESP 18; TEMP 98; O2SAT 98
[2023-07-21] MEDS: LORazepam 2 MG TABLET PO PRN ×2 (08:34→14:57)
[2023-07-21] MEDS: QUEtiapine FUMARATE 300 MG TABLET PO SCH ×2 (08:34→20:01)
[2023-07-21] MEDS: HALOPERIDOL 5 MG TABLET PO PRN ×2 (08:34→14:57)
[2023-07-21] MEDS: SERTRALINE HCL 50 MG TABLET PO SCH (08:34)
[2023-07-21] MEDS: ZOLPIDEM TARTRATE 10 MG TABLET PO PRN (20:00)
[2023-07-21 20:43] VITALS: BP 120/72; PULSE 85; RESP 18; TEMP 97.5; O2SAT 97
[2023-07-22] MEDS: HALOPERIDOL 5 MG TABLET PO PRN ×2 (02:03→08:04)
[2023-07-22] MEDS: LORazepam 2 MG TABLET PO PRN ×2 (02:03→08:04)
[2023-07-22] MEDS: FERROUS SULFATE 325 MG EC TABLET PO SCH ×3 (06:38→16:28)
[2023-07-22] MEDS: SERTRALINE HCL 50 MG TABLET PO SCH (08:04)
[2023-07-22] MEDS: QUEtiapine FUMARATE 300 MG TABLET PO SCH ×2 (08:04→20:04)
[2023-07-22 08:23] VITALS: BP 113/77; PULSE 86; RESP 16; TEMP 97.7; O2SAT 98
[2023-07-22] MEDS: MAG HYDROX/ALUMINUM HYD/SIMETH ES 30 ML SUSPENSION UDCUP PO PRN (11:22)
[2023-07-22 17:05] VITALS: RESP 18
[2023-07-22] MEDS: ACETAMINOPHEN 325 MG TABLET PO PRN (17:05)
[2023-07-22 18:05] VITALS: RESP 18
[2023-07-22 20:02] VITALS: BP 136/82; PULSE 93; RESP 19; TEMP 97.8
[2023-07-22] MEDS: ZOLPIDEM TARTRATE 10 MG TABLET PO PRN (20:04)
[2023-07-23 00:56] VITALS: RESP 18
[2023-07-23] MEDS: MAG HYDROX/ALUMINUM HYD/SIMETH ES 30 ML SUSPENSION UDCUP PO PRN (00:57)
[2023-07-23] MEDS: IBUPROFEN 400 MG TABLET PO PRN ×2 (00:57→16:59)
[2023-07-23 01:57] VITALS: RESP 18
[2023-07-23] MEDS: LORazepam 2 MG TABLET PO PRN ×3 (05:15→15:05)
[2023-07-23] MEDS: FERROUS SULFATE 325 MG EC TABLET PO SCH ×3 (06:26→16:31)
[2023-07-23] MEDS: QUEtiapine FUMARATE 300 MG TABLET PO SCH ×2 (08:14→20:24)
[2023-07-23] MEDS: SERTRALINE HCL 50 MG TABLET PO SCH (08:14)
[2023-07-23 08:25] VITALS: BP 130/82; PULSE 87; RESP 18; TEMP 98; O2SAT 97
[2023-07-23] MEDS: HALOPERIDOL 5 MG TABLET PO PRN ×2 (09:25→15:05)
[2023-07-23 16:59] VITALS: BP 122/54; PULSE 94; RESP 18; TEMP 98; O2SAT 97
[2023-07-23 17:59] VITALS: RESP 18
[2023-07-23] MEDS: ZOLPIDEM TARTRATE 10 MG TABLET PO PRN (20:24)
[2023-07-23 21:24] VITALS: BP 102/67; PULSE 94; RESP 18; TEMP 98; O2SAT 97
[2023-07-24] MEDS: LORazepam 2 MG TABLET PO PRN ×3 (06:15→16:48)
[2023-07-24 06:23] VITALS: BP 106/67; PULSE 111; RESP 17; TEMP 97; O2SAT 99
[2023-07-24] MEDS: FERROUS SULFATE 325 MG EC TABLET PO SCH ×3 (07:01→16:48)
[2023-07-24] MEDS: QUEtiapine FUMARATE 300 MG TABLET PO SCH ×2 (08:20→20:20)
[2023-07-24] MEDS: SERTRALINE HCL 50 MG TABLET PO SCH (08:24)
[2023-07-24 08:51] VITALS: BP 96/61; PULSE 100; RESP 18; TEMP 97.6; O2SAT 99
[2023-07-24] MEDS: HALOPERIDOL 5 MG TABLET PO PRN ×2 (12:13→16:48)
[2023-07-24] MEDS: IBUPROFEN 400 MG TABLET PO PRN (20:21)
[2023-07-24] MEDS: ZOLPIDEM TARTRATE 10 MG TABLET PO PRN (20:21)
[2023-07-24 21:21] VITALS: BP 118/75; PULSE 83; RESP 18; TEMP 97.6; O2SAT 98
[2023-07-24 21:22] VITALS: RESP 17
[2023-07-25] MEDS: LORazepam 2 MG TABLET PO PRN (04:59)
[2023-07-25] MEDS: MAG HYDROX/ALUMINUM HYD/SIMETH ES 30 ML SUSPENSION UDCUP PO PRN (05:00)
[2023-07-25] MEDS: FERROUS SULFATE 325 MG EC TABLET PO SCH ×2 (06:03→12:17)
[2023-07-25 08:21] VITALS: BP 119/74; PULSE 90; RESP 18; TEMP 97.1; O2SAT 98
[2023-07-25] MEDS: SERTRALINE HCL 50 MG TABLET PO SCH (08:43)
[2023-07-25] MEDS: QUEtiapine FUMARATE 300 MG TABLET PO SCH (08:43)
== END 2023-07-25 15:44 | disposition left against medical advice (07) | DRG 750 ==
LOC: EMS 17:03 → B3A 07-12 08:36
PROVIDERS: ADMIT Psychiatry & Neurology Child & Adolescent Psychiatry; ATTEND Psychiatry & Neurology Child & Adolescent Psychiatry
PROC: GZHZZZZ Group Psychotherapy (ICD-10-PCS; principal; 2023-07-22)
DX: F25.1 Schizoaffective disorder, depressive type (principal); R45.851 Suicidal ideations; D64.9 Anemia, unspecified; E73.9 Lactose intolerance, unspecified; F41.9 Anxiety disorder, unspecified; Z20.822 Contact with and (suspected) exposure to COVID-19; G89.29 Other chronic pain; M54.9 Dorsalgia, unspecified; R74.01 Elevation of levels of liver transaminase levels; Z88.5 Allergy status to narcotic agent
CPT/HCPCS: 80053; 80061; 80307; 81003; 83036; 84443; 85025; 87389; 99285; G0480; J1200; J1630; J2060

== ENCOUNTER 2024-04-06 13:07 | Inpatient (IN) | payer MEDICAID ==
[~2024-04-06] VITALS: Ht 175.3 cm; Wt 57.6 kg
[~2024-04-06 13:07] MED LIST changes: +DIVA-112 PO; +LITH300T4 PO; -QUET300T19 PO; +RISP3TAB77 PO; -SERT-439 PO
[2024-04-06] MEDS ORDERED: PRAZ1 PO (13:46)
[2024-04-06] MEDS ORDERED: NALO4SPR NASAL (13:46)
[2024-04-06] MEDS ORDERED: QUET200T PO (13:46)
[2024-04-06] MEDS ORDERED: FERR-72 PO (13:46)
[2024-04-06] MEDS ORDERED: RISP1TAB48 PO (13:46)
[2024-04-06 13:47] LABS: COVID AG,FIA SOURCE NASAL SWAB
[2024-04-06 13:49] LABS: BASOPHILS % (AUTO) 0.5 % (0.0-2.0); HEMATOCRIT 32.7 % (36-46); LYMPHOCYTES # (AUTO) 1.3 K/uL (1.0-4.8); LYMPHOCYTES % (AUTO) 16.9 % (22.0-44.0); MEAN CORPUSCULAR HEMOGLOBIN 22.9 pg (26.0-34.0); MEAN CORPUSCULAR HGB CONC 30.6 G/dL (31.0-37.0); MEAN CORPUSCULAR VOLUME 75 fL (80-100); MONOCYTES # (AUTO) 0.5 K/uL (0.1-1.0); MONOCYTES % (AUTO) 6.1 % (2.0-9.0); NEUTROPHILS # (AUTO) 5.9 K/uL (1.8-7.7); NEUTROPHILS % (AUTO) 75.5 % (40.0-70.0); PLATELET COUNT (AUTO) 420 K/uL (150-450); RED BLOOD CELL COUNT(AUTO) 4.36 MIL/uL (4.00-5.20); RED CELL DISTRIBUTION WIDTH 22.3 % (11.5-14.5); WHITE BLOOD COUNT (AUTO) 7.8 K/uL (4.5-11.0)
[2024-04-06 13:53] LABS: APPEARANCE,URINE HAZY (CLEAR); BILIRUBIN,URINE NEGATIVE (NEGATIVE); COLOR,URINE YELLOW (YELLOW); GLUCOSE, URINE (UA) NEGATIVE (NEGATIVE); KETONES,URINE TRACE mg/dL (NEGATIVE); LEUKOCYTE ESTERASE ,URINE LARGE (NEGATIVE); NITRATE,URINE NEGATIVE (NEGATIVE); OCCULT BLOOD,URINE NEGATIVE (NEGATIVE); PROTEIN,URINE 30-70 mg/dL (NEGATIVE); SPECIFIC GRAVITIY, URINE 1.036 (1.003-1.030)
[2024-04-06 13:59] LABS: ANION GAP 8 mmol/L (8-16); CALCIUM, TOTAL 8.7 mg/dL (8.8-10.5); CARBON DIOXIDE 31 mmol/L (22-29); CHLORIDE 102 mmol/L (98-107); CREATININE 1.03 mg/dL (0.60-1.30); GLOMERULAR FILTR. RATE CALC 58 mL/min (>60); GLUCOSE,RANDOM 104 mg/dL (70-110); POTASSIUM 3.7 mmol/L (3.5-5.1); SODIUM SERUM 141 mmol/L (136-145); UREA NITROGEN, BLOOD 17 mg/dL (7-18)
[2024-04-06 13:59] LABS: ALCOHOL, URINE DRUG SCREEN NEGATIVE (NEGATIVE); AMPHET/METH SCREEN,URINE POSITIVE (NEGATIVE); BACTERIA,URINE Many /HPF (None Seen); BARBITURATE SCREEN, URINE NEGATIVE (NEGATIVE); BENZODIAZEPINES SCREEN,URINE NEGATIVE (NEGATIVE); CANNABINOID SCREEN,URINE POSITIVE (NEGATIVE); COCAINE SCREEN,URINE NEGATIVE (NEGATIVE); METHADONE SCREEN, URINE NEGATIVE (NEGATIVE); OPIATE SCREEN,URINE NEGATIVE (NEGATIVE); PHENCYCLIDINE SCREEN,URINE NEGATIVE (NEGATIVE); RBC,URINE 0-2 /HPF (0-2); WBC,URINE 26-50 /HPF (0-5)
[2024-04-06 14:03] LABS: ALCOHOL, BLOOD (SERUM) < 3 mg/dL (0-10)
[2024-04-06 14:08] LABS: RBC MORPHOLOGY COMMENT ABNORMAL RBC MORPH
[2024-04-06] MEDS: CEPHALEXIN MONOHYDRATE 500 MG CAPSULE PO ONE (14:22)
[2024-04-06] MEDS: PERMETHRIN 1% 60 ML LOTION TP ONE (14:22)
[2024-04-06 14:24] LABS: SARS-COV2 (COVID) ANTIGEN,FIA Negative (Negative)
[2024-04-06 20:00] VITALS: BP 142/97; PULSE 86; RESP 16; TEMP 97.5; O2SAT 100
[2024-04-06] MEDS: ZOLPIDEM TARTRATE 10 MG TABLET PO PRN (20:51)
[2024-04-07] MEDS: LORazepam 2 MG TABLET PO PRN (02:10)
[2024-04-07] MEDS: HALOPERIDOL 5 MG TABLET PO PRN (02:10)
[2024-04-07] MEDS: CEPHALEXIN MONOHYDRATE 500 MG CAPSULE PO SCH (08:06)
[2024-04-07 08:12] VITALS: BP 110/66; PULSE 102; RESP 16; TEMP 97.3; O2SAT 99
[2024-04-07] MEDS ORDERED: LOPERAMIDE HCL 2 MG CAPSULE PO PRN (08:15)
[2024-04-07] MEDS ORDERED: ACETAMINOPHEN 325 MG TABLET PO PRN (08:15)
[2024-04-07] MEDS ORDERED: DOCUSATE SODIUM 100 MG CAPSULE PO PRN (08:15)
[2024-04-07] MEDS ORDERED: IBUPROFEN 400 MG TABLET PO PRN (08:15)
[2024-04-07] MEDS ORDERED: NICOTINE 14 MG/24 HOUR PATCH TD PRN (08:15)
[2024-04-07] MEDS ORDERED: MAGNESIUM HYDROXIDE SUSPENSION 30 ML UDCUP PO PRN (08:15)
[2024-04-07] MEDS ORDERED: PETROLATUM,WHITE 28 GM JELLY TP PRN (08:15)
[2024-04-07] MEDS ORDERED: CloNIDine HCL 0.1 MG TABLET PO PRN (08:15)
[2024-04-07] MEDS ORDERED: ALBUTEROL SULFATE HFA 90 MCG/PUFF 8 GM INHALER IH PRN (08:15)
[2024-04-07] MEDS ORDERED: GuaiFENesin/D-METHORPHAN [SUGAR-FREE] 200-20MG/10 ML SYRUP UDCUP PO PRN (08:15)
[2024-04-07] MEDS ORDERED: CEPHALEXIN MONOHYDRATE 500 MG CAPSULE PO SCH (09:00)
[2024-04-07] MEDS ORDERED: TRAZ150T79 PO (12:14)
[2024-04-07] MEDS: QUEtiapine FUMARATE 100 MG TABLET PO SCH (12:37)
[2024-04-07] MEDS: TraZODone HCL 50 MG TABLET PO SCH (20:02)
[2024-04-07 21:27] VITALS: BP 138/80; PULSE 96; RESP 18; TEMP 97.1; O2SAT 99
[2024-04-08] MEDS: FERROUS SULFATE 325 MG EC TABLET PO SCH (06:02)
[2024-04-08] MEDS: EMTRICITABINE/TENOFOV ALAFENAM 200-25 MG TABLET PO SCH (09:00)
[2024-04-08 09:10] VITALS: BP 126/81; PULSE 98; RESP 17; TEMP 97.6; O2SAT 98
[2024-04-08] MEDS: DiphenhydrAMINE HCL 50 MG/ML VIAL IM ONE (09:15)
[2024-04-08] MEDS: LORazepam 2 MG/ML VIAL IM ONE (09:16)
[2024-04-08] MEDS: HALOPERIDOL LACTATE 5 MG/ML VIAL IM ONE (09:16)
[2024-04-08 21:02] VITALS: BP 130/75; PULSE 89; RESP 18; TEMP 98.1; O2SAT 98
[2024-04-09 08:02] VITALS: RESP 18
[2024-04-09 08:14] LABS: HEMOGLOBIN A1C 5.5 % (3.8-5.6)
[2024-04-09 08:40] LABS: CHOL/HDL RATIO 2.9 (3.9-5.7); THYROID STIMULATING HORMONE 2.31 uIU/mL (0.36-3.74)
[2024-04-10 08:26] VITALS: RESP 16
[2024-04-10 20:16] VITALS: BP 127/81; PULSE 123; RESP 16; TEMP 97.8; O2SAT 98
[2024-04-10] MEDS: MAG HYDROX/ALUMINUM HYD/SIMETH ES 30 ML SUSPENSION UDCUP PO PRN (22:12)
[2024-04-11 08:31] VITALS: RESP 18
== END 2024-04-11 09:45 | disposition left against medical advice (07) | DRG 750 ==
LOC: EMS 13:17 → EDBEDREQSVC 15:49 → EMS 16:45 → B3A 18:09
PROVIDERS: ADMIT Psychiatry & Neurology Child & Adolescent Psychiatry; ATTEND Psychiatry & Neurology Child & Adolescent Psychiatry
PROC: GZHZZZZ Group Psychotherapy (ICD-10-PCS; principal; 2024-04-07)
PROC: GZ52ZZZ Individual Psychotherapy, Cognitive (ICD-10-PCS; 2024-04-07)
DX: F25.9 Schizoaffective disorder, unspecified (principal); R45.851 Suicidal ideations; Z91.148 Patient's other noncompliance with medication regimen for other reason; B85.2 Pediculosis, unspecified; D64.9 Anemia, unspecified; F15.90 Other stimulant use, unspecified, uncomplicated; F41.9 Anxiety disorder, unspecified; Z20.822 Contact with and (suspected) exposure to COVID-19; I10 Essential (primary) hypertension; F43.10 Post-traumatic stress disorder, unspecified; N39.0 Urinary tract infection, site not specified; K21.9 Gastro-esophageal reflux disease without esophagitis; Z79.899 Other long term (current) drug therapy; Z91.011 Allergy to milk products; Z88.8 Allergy status to other drugs, medicaments and biological substances; Z88.6 Allergy status to analgesic agent; Z53.29 Procedure and treatment not carried out because of patient's decision for other reasons
CPT/HCPCS: 80048; 80061; 80307; 81001; 83036; 84443; 84703; 85025; 87086; 87186; 99285; G0480; J1200; J1630; J2060

== ENCOUNTER 2024-05-07 10:16 | Inpatient (IN) | payer MEDICAID ==
[~2024-05-07] VITALS: Ht 167.6 cm; Wt 57.2 kg
[2024-05-07 11:56] LABS: BASOPHILS % (AUTO) 0.3 % (0.0-2.0); EOSINOPHILS % (AUTO) 1.2 % (1.0-6.0); HEMATOCRIT 28.4 % (36-46); HEMOGLOBIN 8.7 g/dL (12.0-16.0); LYMPHOCYTES # (AUTO) 0.9 K/uL (1.0-4.8); LYMPHOCYTES % (AUTO) 13.8 % (22.0-44.0); MEAN CORPUSCULAR HEMOGLOBIN 23.3 pg (26.0-34.0); MEAN CORPUSCULAR HGB CONC 30.8 G/dL (31.0-37.0); MEAN CORPUSCULAR VOLUME 76 fL (80-100); MONOCYTES # (AUTO) 0.3 K/uL (0.1-1.0); MONOCYTES % (AUTO) 5.1 % (2.0-9.0); NEUTROPHILS # (AUTO) 5.1 K/uL (1.8-7.7); NEUTROPHILS % (AUTO) 79.6 % (40.0-70.0); PLATELET COUNT (AUTO) 337 K/uL (150-450); RED BLOOD CELL COUNT(AUTO) 3.76 MIL/uL (4.00-5.20); WHITE BLOOD COUNT (AUTO) 6.4 K/uL (4.5-11.0)
[2024-05-07 12:05] LABS: ANION GAP 6 mmol/L (8-16); CALCIUM, TOTAL 8.5 mg/dL (8.8-10.5); CARBON DIOXIDE 28 mmol/L (22-29); CHLORIDE 99 mmol/L (98-107); CREATININE 0.62 mg/dL (0.60-1.30); GLOMERULAR FILTR. RATE CALC > 60 mL/min (>60); GLUCOSE,RANDOM 94 mg/dL (70-110); POTASSIUM 4.4 mmol/L (3.5-5.1); SODIUM SERUM 133 mmol/L (136-145); UREA NITROGEN, BLOOD 16 mg/dL (7-18)
[2024-05-07] MEDS: FAMOTIDINE 20 MG TABLET PO ONE (12:15)
[2024-05-07] MEDS: LIDOCAINE 2% VISCOUS 15 ML SOLUTION UDCUP PO ONE (12:15)
[2024-05-07] MEDS: MAG HYDROX/ALUMINUM HYD/SIMETH ES 30 ML SUSPENSION UDCUP PO ONE (12:15)
[2024-05-07 12:42] LABS: ALCOHOL, BLOOD (SERUM) < 3 mg/dL (0-10)
[2024-05-07 12:44] LABS: COVID AG,FIA SOURCE NASAL SWAB
[2024-05-07 13:04] LABS: RBC MORPHOLOGY COMMENT ABNORMAL RBC MORPH
[2024-05-07 13:09] LABS: SARS-COV2 (COVID) ANTIGEN,FIA Negative (Negative)
[2024-05-07] MEDS ORDERED: ZOLPIDEM TARTRATE 10 MG TABLET PO PRN (20:00)
[2024-05-08] MEDS: LORazepam 2 MG TABLET PO PRN (03:48)
[2024-05-08] MEDS: HALOPERIDOL 5 MG TABLET PO PRN (03:48)
[2024-05-08 04:06] VITALS: BP 127/64; PULSE 74; RESP 18; TEMP 97.2; O2SAT 98
[2024-05-08] MEDS: PNEUMOCOCCAL VACCINE POLYVALENT 0.5 ML SYRINGE [PPSV23] IM. ONE (07:12)
[2024-05-08 08:03] VITALS: RESP 18
[2024-05-08 10:27] VITALS: BP 98/58; PULSE 98; RESP 16; TEMP 97.9; O2SAT 100
[2024-05-08 10:30] VITALS: BP 98/58; PULSE 98; RESP 16; TEMP 97.9; O2SAT 100
[2024-05-08] MEDS: LITHIUM CARBONATE 300 MG CAPSULE PO SCH (12:46)
[2024-05-08] MEDS: DIVALPROEX SODIUM 500 MG ER TABLET PO SCH (12:46)
[2024-05-08] MEDS ORDERED: DIVALPROEX SODIUM 500 MG ER TABLET PO SCH (13:00)
[2024-05-08] MEDS ORDERED: LITHIUM CARBONATE 300 MG CAPSULE PO SCH (13:00)
[2024-05-08] MEDS ORDERED: DOCUSATE SODIUM 100 MG CAPSULE PO PRN (16:00)
[2024-05-08] MEDS ORDERED: CloNIDine HCL 0.1 MG TABLET PO PRN (16:00)
[2024-05-08] MEDS ORDERED: GuaiFENesin/D-METHORPHAN [SUGAR-FREE] 200-20MG/10 ML SYRUP UDCUP PO PRN (16:00)
[2024-05-08] MEDS ORDERED: PETROLATUM,WHITE 28 GM JELLY TP PRN (16:00)
[2024-05-08] MEDS ORDERED: LOPERAMIDE HCL 2 MG CAPSULE PO PRN (16:00)
[2024-05-08] MEDS ORDERED: MAG HYDROX/ALUMINUM HYD/SIMETH ES 30 ML SUSPENSION UDCUP PO PRN (16:00)
[2024-05-08] MEDS ORDERED: ACETAMINOPHEN 325 MG TABLET PO PRN (16:00)
[2024-05-08] MEDS ORDERED: ALBUTEROL SULFATE HFA 90 MCG/PUFF 8 GM INHALER IH PRN (16:00)
[2024-05-08] MEDS ORDERED: MAGNESIUM HYDROXIDE SUSPENSION 30 ML UDCUP PO PRN (16:00)
[2024-05-08] MEDS ORDERED: NICOTINE 14 MG/24 HOUR PATCH TD PRN (16:00)
[2024-05-08] MEDS: QUEtiapine FUMARATE 200 MG TABLET PO SCH (16:11)
[2024-05-08] MEDS: RisperiDONE 1 MG TABLET PO SCH (16:11)
[2024-05-08 20:05] VITALS: BP 132/81; PULSE 80; RESP 18; TEMP 97.5; O2SAT 98
[2024-05-09 08:21] VITALS: BP 99/63; PULSE 72; RESP 16; TEMP 98; O2SAT 95
[2024-05-09 20:38] VITALS: BP 120/85; PULSE 90; RESP 20; TEMP 98; O2SAT 99
[2024-05-10] MEDS: EMTRICITABINE/TENOFOV ALAFENAM 200-25 MG TABLET PO SCH (08:07)
[2024-05-10 08:08] VITALS: BP 103/61; PULSE 96; RESP 16; TEMP 98.6; O2SAT 97
[2024-05-10 09:08] LABS: HEMOGLOBIN A1C 5.6 % (3.8-5.6)
[2024-05-10 09:19] LABS: CHOL/HDL RATIO 2.5 (3.9-5.7)
[2024-05-10 09:45] LABS: THYROID STIMULATING HORMONE 1.75 uIU/mL (0.36-3.74)
[2024-05-10 20:39] VITALS: BP 116/69; PULSE 86; RESP 16; TEMP 98; O2SAT 100
[2024-05-11 09:25] VITALS: BP 106/60; PULSE 95; RESP 16; TEMP 97.5; O2SAT 98
[2024-05-11 21:09] VITALS: BP 132/91; PULSE 92; RESP 16; TEMP 98; O2SAT 100
[2024-05-12 08:30] VITALS: BP 101/59; PULSE 78; RESP 16; TEMP 97.7; O2SAT 97
[2024-05-12 14:44] VITALS: RESP 18
[2024-05-12] MEDS: IBUPROFEN 400 MG TABLET PO PRN (14:44)
[2024-05-12] MEDS ORDERED: ONDANSETRON HCL 4 MG/2 ML VIAL IM PRN (19:00)
[2024-05-12 21:11] VITALS: BP 107/62; PULSE 86; RESP 17; TEMP 97.5; O2SAT 100
[2024-05-13 08:25] VITALS: BP 139/61; PULSE 93; RESP 16; TEMP 97.7; O2SAT 99
[2024-05-13] MEDS: QUEtiapine FUMARATE 100 MG TABLET PO SCH (16:06)
[2024-05-13 21:13] VITALS: BP 97/64; PULSE 86; RESP 16; TEMP 96.8; O2SAT 99
[2024-05-14 08:34] VITALS: BP 96/60; PULSE 78; RESP 16; TEMP 98.3; O2SAT 100
[2024-05-14 09:42] LABS: ANION GAP 8 mmol/L (8-16); CALCIUM, TOTAL 8.7 mg/dL (8.8-10.5); CARBON DIOXIDE 30 mmol/L (22-29); CHLORIDE 100 mmol/L (98-107); GLOMERULAR FILTR. RATE CALC > 60 mL/min (>60); GLUCOSE,RANDOM 117 mg/dL (70-110); LIPASE 18 U/L (16-77); POTASSIUM 4.3 mmol/L (3.5-5.1); SODIUM SERUM 138 mmol/L (136-145); UREA NITROGEN, BLOOD 16 mg/dL (7-18); VALPROIC ACID 102 mcg/mL (50-100)
[2024-05-14 10:07] LABS: LITHIUM 0.85 mmol/L (0.60-1.20)
[2024-05-14] MEDS ORDERED: INFLUENZA VIRUS VACCINE TVS (6MO+) 2024-25/PF 45 MCG/0.5 ML SYRINGE IM. ONE (15:45)
[2024-05-14 20:46] VITALS: BP 97/57; PULSE 90; RESP 18; TEMP 97.5; O2SAT 99
[2024-05-15 08:40] VITALS: BP 100/67; PULSE 100; RESP 16; TEMP 97.7; O2SAT 97
[2024-05-15 21:57] VITALS: BP 93/67; PULSE 67; RESP 16; TEMP 97.4; O2SAT 98
[2024-05-16 08:09] VITALS: BP 96/62; PULSE 91; RESP 17; TEMP 98.2; O2SAT 99
[2024-05-16] MEDS ORDERED: DIVA-153 PO ×2 (14:57→18:56)
[2024-05-16] MEDS ORDERED: RISP-31 PO ×2 (14:58→18:56)
[2024-05-16] MEDS ORDERED: LITH300C3 PO ×2 (14:58→18:56)
[2024-05-16] MEDS ORDERED: QUET100T34 PO ×2 (15:00→18:56)
[2024-05-16] MEDS ORDERED: QUET200T30 PO (18:56)
[2024-05-17 09:01] LABS: APPEARANCE,URINE CLEAR (CLEAR); BILIRUBIN,URINE NEGATIVE (NEGATIVE); COLOR,URINE YELLOW (YELLOW); GLUCOSE, URINE (UA) NEGATIVE (NEGATIVE); KETONES,URINE TRACE mg/dL (NEGATIVE); LEUKOCYTE ESTERASE ,URINE NEGATIVE (NEGATIVE); NITRATE,URINE NEGATIVE (NEGATIVE); OCCULT BLOOD,URINE NEGATIVE (NEGATIVE); PROTEIN,URINE NEGATIVE (NEGATIVE); SPECIFIC GRAVITIY, URINE 1.022 (1.003-1.030)
[2024-05-17 09:10] LABS: ALCOHOL, URINE DRUG SCREEN NEGATIVE (NEGATIVE); AMPHET/METH SCREEN,URINE NEGATIVE (NEGATIVE); BARBITURATE SCREEN, URINE NEGATIVE (NEGATIVE); BENZODIAZEPINES SCREEN,URINE NEGATIVE (NEGATIVE); CANNABINOID SCREEN,URINE NEGATIVE (NEGATIVE); COCAINE SCREEN,URINE NEGATIVE (NEGATIVE); METHADONE SCREEN, URINE NEGATIVE (NEGATIVE); OPIATE SCREEN,URINE NEGATIVE (NEGATIVE); PHENCYCLIDINE SCREEN,URINE NEGATIVE (NEGATIVE)
== END 2024-05-16 15:15 | disposition home or self-care (01) | DRG 750 ==
LOC: EMS 10:16 → B3A 05-08 02:45
PROVIDERS: ADMIT Psychiatry & Neurology Child & Adolescent Psychiatry; ATTEND Psychiatry & Neurology Child & Adolescent Psychiatry
PROC: GZ56ZZZ Individual Psychotherapy, Supportive (ICD-10-PCS; principal; 2024-05-08)
DX: F25.1 Schizoaffective disorder, depressive type (principal); Z21 Asymptomatic human immunodeficiency virus [HIV] infection status; K21.9 Gastro-esophageal reflux disease without esophagitis; R45.851 Suicidal ideations; F32.A Depression, unspecified; Z20.822 Contact with and (suspected) exposure to COVID-19; T42.6X5A Adverse effect of other antiepileptic and sedative-hypnotic drugs, initial encounter; F41.9 Anxiety disorder, unspecified; F15.10 Other stimulant abuse, uncomplicated; D64.9 Anemia, unspecified; Y92.89 Other specified places as the place of occurrence of the external cause; Z98.84 Bariatric surgery status; I10 Essential (primary) hypertension
CPT/HCPCS: 80048; 80061; 80164; 80178; 80307; 81003; 82140; 83036; 83690; 84443; 85025; 99285; G0480

== ENCOUNTER 2024-08-03 15:50 | Emergency (ER) | payer MEDICAID ==
[~2024-08-03] VITALS: Ht 165.1 cm; Wt 13.6 kg
[~2024-08-03 15:50] MED LIST changes: -DIVA-112 PO; +DIVA-153 PO; +LITH300C3 PO; -LITH300T4 PO; +QUET100T34 PO; +QUET200T30 PO; +RISP-31 PO; -RISP3TAB77 PO
[2024-08-03 16:30] VITALS: BP 124/89; PULSE 83; RESP 18; TEMP 97.8; O2SAT 100
[2024-08-03 16:51] LABS: BASOPHILS % (AUTO) 0.4 % (0.0-2.0); EOSINOPHILS % (AUTO) 0.6 % (1.0-6.0); HEMATOCRIT 28.3 % (36-46); HEMOGLOBIN 8.5 g/dL (12.0-16.0); LYMPHOCYTES % (AUTO) 12.8 % (22.0-44.0); MEAN CORPUSCULAR HEMOGLOBIN 21.2 pg (26.0-34.0); MEAN CORPUSCULAR HGB CONC 29.9 G/dL (31.0-37.0); MEAN CORPUSCULAR VOLUME 71 fL (80-100); MONOCYTES # (AUTO) 0.5 K/uL (0.1-1.0); MONOCYTES % (AUTO) 6.2 % (2.0-9.0); NEUTROPHILS # (AUTO) 6.4 K/uL (1.8-7.7); PLATELET COUNT (AUTO) 393 K/uL (150-450); RED CELL DISTRIBUTION WIDTH 21.4 % (11.5-14.5)
[2024-08-03 16:58] LABS: ANION GAP 3 mmol/L (8-16); CALCIUM, TOTAL 8.5 mg/dL (8.8-10.5); CARBON DIOXIDE 30 mmol/L (22-29); CHLORIDE 99 mmol/L (98-107); CREATININE 0.91 mg/dL (0.60-1.30); GLOMERULAR FILTR. RATE CALC > 60 mL/min (>60); GLUCOSE,RANDOM 203 mg/dL (70-110); POTASSIUM 3.9 mmol/L (3.5-5.1); SODIUM SERUM 132 mmol/L (136-145); UREA NITROGEN, BLOOD 16 mg/dL (7-18)
[2024-08-03 16:58] LABS: APPEARANCE,URINE HAZY (CLEAR); BILIRUBIN,URINE NEGATIVE (NEGATIVE); COLOR,URINE YELLOW (YELLOW); GLUCOSE, URINE (UA) NEGATIVE (NEGATIVE); KETONES,URINE NEGATIVE (NEGATIVE); LEUKOCYTE ESTERASE ,URINE TRACE (NEGATIVE); NITRATE,URINE NEGATIVE (NEGATIVE); OCCULT BLOOD,URINE NEGATIVE (NEGATIVE); PROTEIN,URINE 30-70 mg/dL (NEGATIVE); SPECIFIC GRAVITIY, URINE 1.034 (1.003-1.030)
[2024-08-03 17:06] LABS: RBC,URINE None Seen /HPF (0-2); WBC,URINE 0-2 /HPF (0-5)
[2024-08-03 17:07] LABS: BACTERIA,URINE None Seen /HPF (None Seen); CALCIUM OXALATE CRYSTALS,UR Moderate /LPF (None Seen); SQUAMOUS EPITHELIAL CELL,UR Rare /LPF (None Seen)
[2024-08-03 17:10] LABS: ALANINE AMINOTRANSFERASE 26 U/L (12-78); ALBUMIN 2.7 g/dL (3.4-5.0); ALKALINE PHOSPHATASE 114 U/L (46-116); ASPARTATE AMINOTRANSFERASE 21 U/L (15-37); BILIRUBIN,TOTAL 0.2 mg/dL (0.1-1.0); HCG,QUANTITATIVE < 1 mIU/mL (0-6); LIPASE 21 U/L (16-77); TOTAL PROTEIN, SERUM 6.1 g/dL (6.4-8.2)
[2024-08-03 17:56] LABS: RBC MORPHOLOGY COMMENT ABNORMAL RBC MORPH
[2024-08-03] MEDS ORDERED: POLY119P3 PO (20:01)
== END 2024-08-04 03:38 | disposition home or self-care (01) ==
LOC: EMS 15:50
DX: K59.00 Constipation, unspecified (principal); F41.9 Anxiety disorder, unspecified; F20.9 Schizophrenia, unspecified; F32.A Depression, unspecified; G89.29 Other chronic pain; F15.90 Other stimulant use, unspecified, uncomplicated; K21.9 Gastro-esophageal reflux disease without esophagitis; Z98.890 Other specified postprocedural states; Z98.84 Bariatric surgery status; Z88.5 Allergy status to narcotic agent
CPT/HCPCS: 74018; 76705; 80048; 80076; 81001; 83690; 84702; 85025; 99284; 36415-L1; 36415-TC

== ENCOUNTER 2024-12-31 10:16 | Emergency (ER) | payer MEDICAID ==
[~2024-12-31] VITALS: Ht 167.6 cm; Wt 77.3 kg
[~2024-12-31 10:16] MED LIST changes: +POLY119P3 PO
[2024-12-31 10:24] VITALS: BP 91/63; PULSE 104; RESP 18; TEMP 98.2; O2SAT 98
== END 2024-12-31 14:56 | disposition home or self-care (01) ==
LOC: EMS 10:28
DX: Z00.8 Encounter for other general examination (principal); F32.A Depression, unspecified; G89.29 Other chronic pain; K21.9 Gastro-esophageal reflux disease without esophagitis; D64.9 Anemia, unspecified; Z88.5 Allergy status to narcotic agent; Z98.84 Bariatric surgery status; Z79.899 Other long term (current) drug therapy; Z59.00 Homelessness unspecified
CPT/HCPCS: 99283; Z7502

== ENCOUNTER 2025-02-01 00:49 | Emergency (ER) | payer MEDICAID ==
[~2025-02-01] VITALS: Ht 167.6 cm; Wt 59.1 kg
[2025-02-01 03:17] VITALS: BP 126/89; PULSE 68; RESP 18; TEMP 98.6; O2SAT 100
== END 2025-02-01 04:17 | disposition home or self-care (01) ==
LOC: EMS 00:51
DX: F25.9 Schizoaffective disorder, unspecified (principal); K21.9 Gastro-esophageal reflux disease without esophagitis; F41.9 Anxiety disorder, unspecified; F32.A Depression, unspecified; G89.29 Other chronic pain; F15.90 Other stimulant use, unspecified, uncomplicated; F17.210 Nicotine dependence, cigarettes, uncomplicated; Z98.84 Bariatric surgery status; Z88.5 Allergy status to narcotic agent; Z59.819 Housing instability, housed unspecified; Z98.890 Other specified postprocedural states; Z91.09 Other allergy status, other than to drugs and biological substances
CPT/HCPCS: 99283; Z7502

== ENCOUNTER 2025-07-07 11:33 | Emergency (ER) | payer MEDICAID ==
[~2025-07-07] VITALS: Ht 172.7 cm; Wt 85.2 kg
[2025-07-07 11:41] VITALS: TEMP 98.5
[2025-07-07 12:21] LABS: PLATELET COUNT (AUTO) 369 K/uL (150-450); RED BLOOD CELL COUNT(AUTO) 4.80 MIL/uL (4.00-5.20); RED CELL DISTRIBUTION WIDTH 20.9 % (11.5-14.5); WHITE BLOOD COUNT (AUTO) 5.6 K/uL (4.5-11.0)
[2025-07-07 12:29] LABS: CALCIUM, TOTAL 8.0 mg/dL (8.8-10.5); CREATININE 0.68 mg/dL (0.60-1.30); GLOMERULAR FILTR. RATE CALC > 60 mL/min (>60); GLUCOSE,RANDOM 119 mg/dL (70-110); SODIUM SERUM 141 mmol/L (136-145); UREA NITROGEN, BLOOD 15 mg/dL (7-18)
[2025-07-07 12:42] LABS: ASPARTATE AMINOTRANSFERASE 14.0 U/L (15-37); HCG,QUANTITATIVE 4.0 mIU/mL (0-6); TOTAL PROTEIN, SERUM 6.6 g/dL (6.4-8.2)
[2025-07-07] MEDS: DICYCLOMINE HCL 10 MG CAPSULE PO ONE (12:49)
[2025-07-07] MEDS: PB/HYOSCY/ATR/SCOP/LIDO/MAALOX 55 ML BOTTLE PO ONE (12:49)
[2025-07-07 13:06] LABS: RBC MORPHOLOGY COMMENT ABNORMAL RBC MORPH
[2025-07-07 13:53] VITALS: BP 108/72; PULSE 92; RESP 18; O2SAT 99
== END 2025-07-07 14:26 | disposition home or self-care (01) ==
LOC: EMS 11:33
DX: R10.84 Generalized abdominal pain (principal); R10.20 Pelvic and perineal pain unspecified side; Z88.5 Allergy status to narcotic agent; Z98.84 Bariatric surgery status
CPT/HCPCS: 80048; 80076; 83690; 84702; 85025; 99283